=== PATIENT | male | born 1945 | race Caucasian/White ===

== ENCOUNTER 2023-06-30 09:48 | Outpatient (AMB) | payer MEDICARE, SELFPAY ==
--- NOTE | 2023-06-30 09:53 | HO.NEPHOV ---
HPI HPI Comments History of Present Illness Details Inderjit was seen in the office in follow-up of his chronic kidney disease. He has vascular disease including peripheral arterial disease, coronary artery disease needing CABG, right carotid stenosis needing carotid endarterectomy as well as renal artery stenosis. He has history of nephrolithiasis. He has not had any renal stones for a long time. He follows up closely with vascular physicians as well as his primary care doctor. He has not had any medication changes. His blood pressure has been at goal. He is active but gets lower extremity cramping when he walks for some time. He denies chest pain, shortness with, proximal nocturnal dyspnea, orthopnea, dizziness, weakness, nausea, vomiting, diarrhea or urinary symptoms. He had no hematuria and has not passed any grit or gravel in the urine. His renal functions had been stable. He does not take any nonsteroidal anti-inflammatory medications. [facility] Medical History (Updated 06/30/23 @ 13:56 by Quintin Mike MD) PAD (peripheral artery disease) Renal artery stenosis Renal stone Chronic kidney disease, stage 3a Surgical History (Updated 06/30/23 @ 09:54 by Carolina Leary MA) Hx of CABG Social History (Updated 06/30/23 @ 10:00 by Carolina Leary MA) Alcohol intake: never Patient Tobacco Use Status: Former Tobacco user Vital Signs 06/30/23 09:56 Height 6 ft Weight 200 lb 8 oz BMI 27.2 BP 132/70 Blood Pressure Location Rt brachial Position Sitting Pulse 57 Pulse Source Pulse Oximeter Physical Exam Vital Signs: Last Vital Signs Pulse 57 06/30/23 09:56 BP 132/70 06/30/23 09:56 BMI result Body Mass Index 27.2 Const General: comfortable and no acute distress Orientation/consciousness: patient oriented x3 HEENT Head: Yes normocephalic Mouth: Normal oral and palatal mucosa present Eyes EOM: EOMs intact bilaterally Neck Other: L carotid bruit + Neck: Yes supple Resp Auscultation: clear to auscultation bilaterally Cardio Jugular venous distension: no JVD Rate: regular rate GI Palpation (GI): Soft to palpation Auscultation: normal bowel sounds General: Yes no CVA tenderness Back/Spine/Pelvis Back: no CVA tenderness Skin General skin exam: no rashes or lesions noted Neuro General: patient oriented x3 and moves all extremities Extrem General: Yes no pedal edema Assessment & Plan Assessment & Plan (1) Chronic kidney disease, stage 3a: Code(s): N18.31 - Chronic kidney disease, stage 3a (2) Renal stone: Code(s): N20.0 - Calculus of kidney (3) Renal artery stenosis: Code(s): I70.1 - Atherosclerosis of renal artery (4) Hypertension: Code(s): I10 - Essential (primary) hypertension Qualifiers: Hypertension type: renovascular hypertension Qualified Code(s): I15.0 - Renovascular hypertension (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 He had right carotid stenosis needing endarterectomy, coronary artery disease needing CABG, peripheral arterial disease as well as renal artery stenosis. His blood pressure is currently well controlled on current medication regimen. His renal functions had been stable. He avoids nonsteroidal anti-inflammatory medications and maintain good hydration. He does not have any orthostatic symptoms. He has left carotid artery stenosis and is going to be followed up by his vascular physician. He has history of recurrent nephrolithiasis (uric acid stones) and is on allopurinol. He should be on a low-sodium diet. I did not make any medication changes today. All his questions and concerns were addressed. Time spent retrieving data, patient encounter and documentation 21 minutes. Follow-up given. Orders: Orders Uric Acid Today I70.1 - Atherosclerosis of renal artery, N18.31 - Chronic kidney disease, stage 3a, N20.0 - Calculus of kidney Electrolytes Today I70.1 - Atherosclerosis of renal artery, N18.31 - Chronic kidney disease, stage 3a, N20.0 - Calculus of kidney Creatinine Today I70.1 - Atherosclerosis of renal artery, N18.31 - Chronic kidney disease, stage 3a, N20.0 - Calculus of kidney Blood Urea Nitrogen Today I70.1 - Atherosclerosis of renal artery, N18.31 - Chronic kidney disease, stage 3a, N20.0 - Calculus of kidney Calcium Today I70.1 - Atherosclerosis of renal artery, N18.31 - Chronic kidney disease, stage 3a, N20.0 - Calculus of kidney Coding Level of Care Code Est Pt Level 3 (72701) Diagnoses Chronic kidney disease, stage 3a N18.31 Renal stone N20.0 Renal artery stenosis I70.1 Renovascular hypertension I15.0 Hypertension 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
[2023-06-30 09:56] VITALS: BP 132/70; PULSE 57; BMI 27.2
== END 2023-06-30 10:48 | disposition home or self-care (01) ==
PROVIDERS: PCP Family Medicine; Visit Provider Internal Medicine Nephrology
DX: I12.9 Hypertensive chronic kidney disease with stage 1 through stage 4 chronic kidney disease, or unspecified chronic kidney disease (principal); N18.31 Chronic kidney disease, stage 3a; I70.1 Atherosclerosis of renal artery; N20.0 Calculus of kidney; R82.991 Hypocitraturia
CPT/HCPCS: 99213

== ENCOUNTER → 2023-06-30 09:48 | Outpatient (BNVA) | payer MEDICARE, SELFPAY | PROVIDERS: PCP Family Medicine; Visit Provider Internal Medicine Nephrology | DX: N18.31 Chronic kidney disease, stage 3a (principal); N20.0 Calculus of kidney; I70.1 Atherosclerosis of renal artery; I15.0 Renovascular hypertension; R82.991 Hypocitraturia | CPT/HCPCS: 99212 ==

== ENCOUNTER 2023-10-27 09:24 | Outpatient (AMB) | payer MEDICARE, SELFPAY ==
[2023-10-27 09:28] VITALS: BP 104/62; PULSE 63; O2SAT 93; BMI 27.3
--- NOTE | 2023-10-27 09:28 | HO.NEPHOV_ITS ---
HPI HPI Comments History of Present Illness Details Inderjit was seen in the office in follow-up of his chronic kidney disease. He has vascular disease including peripheral arterial disease, coronary artery disease needing CABG, right carotid stenosis needing carotid endarterectomy as well as renal artery stenosis. He has history of nephrolithiasis. He has not had any renal stones for a long time. He follows up closely with vascular physicians as well as his primary care doctor. He has not had any medication changes. His blood pressure has been at goal. He is active but gets lower extremity cramping when he walks for some time. He denies chest pain, shortness with, proximal nocturnal dyspnea, orthopnea, dizziness, weakness, nausea, vomiting, diarrhea or urinary symptoms. He had no hematuria and has not passed any grit or gravel in the urine. His renal functions had been stable. He does not take any nonsteroidal anti-inflammatory medications. [facility] Medical History (Updated 06/30/23 @ 13:56 by Quintin Mike MD) PAD (peripheral artery disease) Renal artery stenosis Renal stone Chronic kidney disease, stage 3a Surgical History (Updated 06/30/23 @ 09:54 by Carolina Leary MA) Hx of CABG Social History (Updated 06/30/23 @ 10:00 by Carolina Leary MA) Alcohol intake: never Patient Tobacco Use Status: Former Tobacco user Vital Signs 10/27/23 09:28 Height 6 ft Weight 201 lb 8 oz BMI 27.3 BP 104/62 Blood Pressure Location Lt brachial Position Sitting Pulse 63 Pulse Source Pulse Oximeter Pulse Oximetry (%) 93 Oxygen Delivery Method Room Air Physical Exam Vital Signs: Normal Const General: comfortable and no acute distress Orientation/consciousness: patient oriented x3 HEENT Head: Yes normocephalic Mouth: Normal oral and palatal mucosa present Eyes EOM: EOMs intact bilaterally Neck Neck: Yes supple Resp Auscultation: clear to auscultation bilaterally Cardio Jugular venous distension: no JVD Rate: regular rate GI Palpation (GI): Soft to palpation Auscultation: normal bowel sounds General: Yes no CVA tenderness Back/Spine/Pelvis Back: no CVA tenderness Skin General skin exam: no rashes or lesions noted Neuro General: patient oriented x3 and moves all extremities Extrem General: Yes no pedal edema Assessment & Plan Assessment & Plan (1) Chronic kidney disease, stage 3a: Code(s): N18.31 - Chronic kidney disease, stage 3a (2) Renal artery stenosis: Code(s): I70.1 - Atherosclerosis of renal artery (3) Renal stone: Code(s): N20.0 - Calculus of kidney (4) Hypertension: Code(s): I10 - Essential (primary) hypertension Qualifiers: Hypertension type: renovascular hypertension Qualified Code(s): I15.0 - Renovascular hypertension Pili Jansen has 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 He had right carotid stenosis needing endarterectomy, coronary artery disease needing CABG, peripheral arterial disease as well as renal artery stenosis. His blood pressure is currently well controlled on current medication regimen. His renal functions had been stable. He avoids nonsteroidal anti-inflammatory medications and maintain good hydration. He does not have any orthostatic symptoms. He has left carotid artery stenosis and is going to be followed up by his vascular physician. He has history of recurrent nephrolithiasis (uric acid stones) and is on allopurinol. He should be on a low-sodium diet. I did not make any medication changes today. All his questions and concerns were addressed. Orders: Orders Parathyroid Hormone Intact Today I10 - Essential (primary) hypertension, I70.1 - Atherosclerosis of renal artery, N18.31 - Chronic kidney disease, stage 3a, N20.0 - Calculus of kidney Phosphorus Today I10 - Essential (primary) hypertension, I70.1 - Atherosclerosis of renal artery, N18.31 - Chronic kidney disease, stage 3a, N20.0 - Calculus of kidney Creatinine Today I10 - Essential (primary) hypertension, I70.1 - Atherosclerosis of renal artery, N18.31 - Chronic kidney disease, stage 3a, N20.0 - Calculus of kidney Blood Urea Nitrogen Today I10 - Essential (primary) hypertension, I70.1 - Atherosclerosis of renal artery, N18.31 - Chronic kidney disease, stage 3a, N20.0 - Calculus of kidney Electrolytes Today I10 - Essential (primary) hypertension, I70.1 - Atherosclerosis of renal artery, N18.31 - Chronic kidney disease, stage 3a, N20.0 - Calculus of kidney Calcium Today I10 - Essential (primary) hypertension, I70.1 - Atherosclerosis of renal artery, N18.31 - Chronic kidney disease, stage 3a, N20.0 - Calculus of kidney Complete Blood Count Auto Diff Today I10 - Essential (primary) hypertension, I70.1 - Atherosclerosis of renal artery, N18.31 - Chronic kidney disease, stage 3a, N20.0 - Calculus of kidney Coding Level of Care Code Est Pt Level 4 (69144) Diagnoses Chronic kidney disease, stage 3a N18.31 Renal artery stenosis I70.1 Renal stone N20.0 Renovascular hypertension I15.0 Hypertension type: renovascular hypertension Results Reviewed Nephrology Results: No Data to Display
== END 2023-10-27 09:51 | disposition home or self-care (01) ==
PROVIDERS: PCP Family Medicine; Visit Provider Internal Medicine Nephrology
DX: N18.31 Chronic kidney disease, stage 3a (principal); I70.1 Atherosclerosis of renal artery; N20.0 Calculus of kidney; I15.0 Renovascular hypertension
CPT/HCPCS: 99214

== ENCOUNTER → 2023-10-27 09:24 | Outpatient (BNVA) | payer MEDICARE, SELFPAY | PROVIDERS: PCP Family Medicine; Visit Provider Internal Medicine Nephrology | DX: N18.31 Chronic kidney disease, stage 3a (principal); I15.0 Renovascular hypertension; I73.9 Peripheral vascular disease, unspecified; I25.10 Atherosclerotic heart disease of native coronary artery without angina pectoris; I70.1 Atherosclerosis of renal artery; N20.0 Calculus of kidney | CPT/HCPCS: 99212 ==

== ENCOUNTER 2024-03-01 09:22 | Outpatient (AMB) | payer MEDICARE, SELFPAY ==
--- NOTE | 2024-03-01 09:30 | HO.NEPHOV ---
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 He has vascular disease including peripheral arterial disease, coronary artery disease needing CABG, right carotid stenosis needing carotid endarterectomy as well as renal artery stenosis. He has history of nephrolithiasis. He has not had any renal stones for a long time. He follows up closely with vascular physicians as well as his primary care doctor. He has not had any medication changes. His blood pressure has been at goal. He is active but gets lower extremity cramping when he walks for some time. He denies chest pain, shortness with, proximal nocturnal dyspnea, orthopnea, dizziness, weakness, nausea, vomiting, diarrhea or urinary symptoms. He had no hematuria and has not passed any grit or gravel in the urine. His renal functions had been stable. He does not take any nonsteroidal anti-inflammatory medications. [facility] Medical History (Updated 06/30/23 @ 13:56 by Quintin Mike MD) PAD (peripheral artery disease) Renal artery stenosis Renal stone Chronic kidney disease, stage 3a Surgical History Hx of CABG Social History Alcohol intake: never Patient Tobacco Use Status: Former Tobacco user Physical Exam Vital Signs: Last Vital Signs Pulse 61 03/01/24 09:32 BP 100/60 03/01/24 09:32 Pulse Ox 93 03/01/24 09:32 Oxygen Delivery Method Room Air 03/01/24 09:32 BMI result Body Mass Index 26.2 Const General: comfortable and no acute distress Orientation/consciousness: patient oriented x3 HEENT Head: Yes normocephalic Mouth: Normal oral and palatal mucosa present Eyes EOM: EOMs intact bilaterally Neck Neck: Yes supple Resp Auscultation: clear to auscultation bilaterally Cardio Jugular venous distension: no JVD Rate: regular rate GI Palpation (GI): Soft to palpation Auscultation: normal bowel sounds General: Yes no CVA tenderness Back/Spine/Pelvis Back: no CVA tenderness Skin General skin exam: no rashes or lesions noted Neuro General: patient oriented x3 and moves all extremities Extrem General: Yes no pedal edema Results Reviewed Nephrology Results: No Data to Display Assessment & Plan Assessment & Plan (1) Hypertension: Code(s): I10 - Essential (primary) hypertension Category: Medical Qualifiers: Hypertension type: renovascular hypertension Qualified Code(s): I15.0 - Renovascular hypertension (2) Chronic kidney disease, stage 3a: Code(s): N18.31 - Chronic kidney disease, stage 3a Category: Medical (3) Renal stone: Code(s): N20.0 - Calculus of kidney Category: Medical (4) Renal artery stenosis: Code(s): I70.1 - Atherosclerosis of renal artery Category: Medical Plan 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 He had right carotid stenosis needing endarterectomy, coronary artery disease needing CABG, peripheral arterial disease as well as renal artery stenosis. His blood pressure is currently well controlled on current medication regimen. His renal functions had been stable. He avoids nonsteroidal anti-inflammatory medications and maintain good hydration. He does not have any orthostatic symptoms. He has left carotid artery stenosis and is going to be followed up by his vascular physician. He has history of recurrent nephrolithiasis (uric acid stones) and is on allopurinol. He should be on a low-sodium diet. I did not make any medication changes today. All his questions and concerns were addressed Orders: Orders Creatinine Today I15.0 - Renovascular hypertension, I70.1 - Atherosclerosis of renal artery, N18.31 - Chronic kidney disease, stage 3a, N20.0 - Calculus of kidney Blood Urea Nitrogen Today I15.0 - Renovascular hypertension, I70.1 - Atherosclerosis of renal artery, N18.31 - Chronic kidney disease, stage 3a, N20.0 - Calculus of kidney Electrolytes Today I15.0 - Renovascular hypertension, I70.1 - Atherosclerosis of renal artery, N18.31 - Chronic kidney disease, stage 3a, N20.0 - Calculus of kidney Complete Blood Count Auto Diff Today I15.0 - Renovascular hypertension, I70.1 - Atherosclerosis of renal artery, N18.31 - Chronic kidney disease, stage 3a, N20.0 - Calculus of kidney Parathyroid Hormone Intact Today I15.0 - Renovascular hypertension, I70.1 - Atherosclerosis of renal artery, N18.31 - Chronic kidney disease, stage 3a, N20.0 - Calculus of kidney Calcium Today I15.0 - Renovascular hypertension, I70.1 - Atherosclerosis of renal artery, N18.31 - Chronic kidney disease, stage 3a, N20.0 - Calculus of kidney Coding Level of Care Code Est Pt Level 4 (39903) Diagnoses Renovascular hypertension I15.0 Hypertension type: renovascular hypertension Chronic kidney disease, stage 3a N18.31 Renal stone N20.0 Renal artery stenosis I70.1
[2024-03-01 09:32] VITALS: BP 100/60; PULSE 61; O2SAT 93; BMI 26.2
== END 2024-03-01 09:42 | disposition home or self-care (01) ==
PROVIDERS: PCP Family Medicine; Visit Provider Internal Medicine Nephrology
DX: I12.9 Hypertensive chronic kidney disease with stage 1 through stage 4 chronic kidney disease, or unspecified chronic kidney disease (principal); N18.31 Chronic kidney disease, stage 3a; N20.0 Calculus of kidney; I70.1 Atherosclerosis of renal artery
CPT/HCPCS: 99214

== ENCOUNTER → 2024-03-01 09:22 | Outpatient (BNVA) | payer MEDICARE, SELFPAY | PROVIDERS: PCP Family Medicine; Visit Provider Internal Medicine Nephrology | DX: I15.0 Renovascular hypertension (principal); N18.31 Chronic kidney disease, stage 3a; I70.1 Atherosclerosis of renal artery; N20.0 Calculus of kidney; I65.21 Occlusion and stenosis of right carotid artery; I73.9 Peripheral vascular disease, unspecified; I25.10 Atherosclerotic heart disease of native coronary artery without angina pectoris | CPT/HCPCS: 99212 ==

== ENCOUNTER 2024-09-08 09:50 | Outpatient (AMB) | payer MEDICARE, SELFPAY ==
--- NOTE | 2024-09-08 10:03 | HO.NEPHOV ---
Vital Signs 09/08/24 10:04 Height 6 ft Weight 201 lb 2 oz BMI 27.3 BP 124/70 Blood Pressure Location Lt brachial Position Sitting Pulse 62 Pulse Source Pulse Oximeter Pulse Oximetry (%) 93 Oxygen Delivery Method Room Air Intake Visit Reasons: Chronic kidney disease, stage 3a-LVM White [employer] Corros[employer] Proofer Required: No Accompanied by: Self / Same As Patient Allergies No Known Allergies Allergy (Verified 09/08/24 10:04) HPI Comments Details: Inderjit was seen in the office in follow-up of his chronic kidney disease. He has vascular disease including peripheral arterial disease, coronary artery disease needing CABG, right carotid stenosis needing carotid endarterectomy as well as renal artery stenosis. He has history of nephrolithiasis. He has not had any renal stones for a long time. He follows up closely with vascular physicians as well as his primary care doctor. He has not had any medication changes. His blood pressure has been at goal. He is active but gets lower extremity cramping when he walks for some time. He denies chest pain, shortness with, proximal nocturnal dyspnea, orthopnea, dizziness, weakness, nausea, vomiting, diarrhea or urinary symptoms. He had no hematuria and has not passed any grit or gravel in the urine. His renal functions had been stable. He does not take any nonsteroidal anti-inflammatory medications [facility] Medical History (Updated 04/14/24 @ 17:13 by Quintin Mike MD) PAD (peripheral artery disease) Renal artery stenosis Renal stone Chronic kidney disease, stage 3a Surgical History Hx of CABG Social History Alcohol intake: never Patient Tobacco Use Status: Former Tobacco user Review of Systems Const All systems reviewed & are unremarkable except as noted in HPI and below Physical Exam Vital Signs: Last Vital Signs Pulse 62 09/08/24 10:04 BP 124/70 09/08/24 10:04 Pulse Ox 93 09/08/24 10:04 Oxygen Delivery Method Room Air 09/08/24 10:04 BMI result Body Mass Index 27.3 Const General: comfortable and no acute distress Orientation/consciousness: patient oriented x3 HEENT Head: Yes normocephalic Mouth: Normal oral and palatal mucosa present Eyes EOM: EOMs intact bilaterally Neck Neck: Yes supple Resp Auscultation: clear to auscultation bilaterally Cardio Jugular venous distension: no JVD Rate: regular rate GI Palpation (GI): Soft to palpation Auscultation: normal bowel sounds General: Yes no CVA tenderness Back/Spine/Pelvis Back: no CVA tenderness Skin General skin exam: no rashes or lesions noted Neuro General: patient oriented x3 and moves all extremities Extrem General: Yes no pedal edema Results Reviewed Nephrology Results: No Data to Display Assessment & Plan Assessment & Plan (1) Renovascular hypertension: Code(s): I15.0 - Renovascular hypertension Category: Medical (2) 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 He had right carotid stenosis needing endarterectomy, coronary artery disease needing CABG, peripheral arterial disease as well as renal artery stenosis. His blood pressure is currently well controlled on current medication regimen. His renal functions had been stable. He avoids nonsteroidal anti-inflammatory medications and maintain good hydration. He does not have any orthostatic symptoms. He has left carotid artery stenosis and is going to be followed up by his vascular physician. He has history of recurrent nephrolithiasis (uric acid stones) and is on allopurinol. He should be on a low-sodium diet. I did not make any medication changes today. All his questions and concerns were addressed Orders: Orders Creatinine 6 Months I15.0 - Renovascular hypertension, I70.1 - Atherosclerosis of renal artery, N18.31 - Chronic kidney disease, stage 3a, N20.0 - Calculus of kidney, R82.991 - Hypocitraturia Electrolytes 6 Months I15.0 - Renovascular hypertension, I70.1 - Atherosclerosis of renal artery, N18.31 - Chronic kidney disease, stage 3a, N20.0 - Calculus of kidney, R82.991 - Hypocitraturia Uric Acid 6 Months I15.0 - Renovascular hypertension, I70.1 - Atherosclerosis of renal artery, N18.31 - Chronic kidney disease, stage 3a, N20.0 - Calculus of kidney, R82.991 - Hypocitraturia Blood Urea Nitrogen 6 Months I15.0 - Renovascular hypertension, I70.1 - Atherosclerosis of renal artery, N18.31 - Chronic kidney disease, stage 3a, N20.0 - Calculus of kidney, R82.991 - Hypocitraturia Calcium 6 Months I15.0 - Renovascular hypertension, I70.1 - Atherosclerosis of renal artery, N18.31 - Chronic kidney disease, stage 3a, N20.0 - Calculus of kidney, R82.991 - Hypocitraturia Coding Level of Care Code Est Pt Level 4 (13985) Diagnoses Renovascular hypertension I15.0 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
[2024-09-08 10:04] VITALS: BP 124/70; PULSE 62; O2SAT 93; BMI 27.3
--- OUTSIDE RECORDS SUMMARY | 2024-09-08 10:36 | XMS_ITS ---
Author Organization [facility] Address Unknown Problems Problem Status Start Date End Date NON-ST ELEVATION (NSTEMI) MY OCARDIAL INFARCTION (Primary) (I21.4 - ICD-10-CM) ACTIVE 07/12/2017 ATHEROSCLEROSIS OF CORONARY ARTERY BYPASS GRAFT(S) WITHOUT ANGINA PECTORIS (I25.810 - ICD-10-CM) ACTIVE 07/12/2017 PRESENCE OF AORTOCORONARY BYPASS GRAFT (Z95.1 - ICD-10 -CM) ACTIVE 07/12/2017 ATHEROSCLEROTIC HEART DISEAS E OF [place] CORONARY ARTERY WITHOUT ANGINA PECTORIS (I25.10 - ICD-10-CM) ACTIVE 07/12/2017 OCCLUSION AND STENOSIS OF UN SPECIFIED CAROTID ARTERY (I65.29 - ICD-10-CM) ACTIVE 07/12/2017 CHRONIC OBSTRUCTIVE PULMONAR Y DISEASE, UNSPECIFIED (J44.9 - ICD-10-CM) ACTIVE 07/12/2017 WEAKNESS (R53.1 - ICD-10-CM) ACTIVE 07/12/2017 HEART FAILURE, UNSPECIFIED (I50.9 - ICD-10-CM) ACTIVE 07/12/2017 CHRONIC KIDNEY DISEASE, STAGE 2 (MILD) (N18.2 - ICD-10 -CM) ACTIVE 07/12/2017 ESSENTIAL (PRIMARY) HYPERTENSION (I10 - ICD-10-CM) ACT CRUZITO 07/12/2017 HYPERLIPIDEMIA, UNSPECIFIED (E78.5 - ICD-10-CM) ACTIVE 07/12/2017 PERIPHERAL VASCULAR DISEASE, UNSPECIFIED (I73.9 - ICD-10-CM) ACTIVE 07/12/2017 CALCULUS OF KIDNEY (N20.0 - ICD-10-CM) ACTIVE SOLITARY PULMONARY NODULE (R91.1 - ICD-10-CM) ACTIVE 07/12/2017 PERSONAL HISTORY OF TRANSIEN T ISCHEMIC ATTACK (TIA), AND CEREBRAL INFARCTION WITHOUT RESIDUAL DEFICITS (Z86.73 - ICD-10-CM) ACTIVE 07/12/2017 PAIN, UNSPECIFIED (R52 - ICD-10-CM) ACTIVE 07/12 GASTRO-ESOPHAGEAL REFLUX DIS EASE WITHOUT ESOPHAGITIS (K21.9 - ICD-10-CM) ACTIVE 07/12/2017 ANEMIA, UNSPECIFIED (D64.9 - ICD-10-CM) ACTIVE 1 09/12/2016 Encounters Encounter Performer Performer Role Encounter Diagnoses Location Date Discharge - Discharged to home or self care - Home - Private home/apt. with home health services [facility] 7 03:43 pm EST - 7 04:44 pm EST Immunizations Vaccine Date Influenza Prevnar 13 Social History
--- OUTSIDE RECORDS SUMMARY | 2024-09-08 10:36 | XMS_ITS | Clinical Summary ---
Author Organization [facility] Address [address] [place] [address] Phone Care Team Providers Care Paper Guillotine Operator Name Role Phone Chau Carlton MD Primary Care Provider [phone] Allergies No known active allergies Medications allopurinol (ZYLOPRIM) 100 MG tablet Take 1 tablet by mouth 1 (one) time each day 05/01/2020 Active aspirin 325 MG tablet Take 0.5 tablets by mouth 1 (one) time each day Active pravastatin (PRAVACHOL) 40 MG tablet Take 1 tablet by mouth 1 (one) time each day Active amLODIPine (NORVASC) 10 MG tablet Take 1 tablet by mouth 1 (one) time each day 05/20/2022 Active carvedilol (COREG) 12.5 MG tablet Take 1 tablet by mouth in the morning and 1 tablet in the evening. 05/21/2022 Active Active Problems Problem Noted Date Diagnosed Date Benign hypertensive renal disease 10/30/2020 Stage 3a chronic kidney disease 10/30/2020 Renal stone 10/30/2020 Renal artery stenosis 10/30/2020 Benign essential hypertension 05/18/2013 Resolved Problems Problem Noted Date Diagnosed Date Resolved Date Deviated nasal septum 11/12/20212021 Ex-cigarette smoker 11/12/2021 11/13/19 22 History of coronary artery bypass grafting 11/12/2021 11/12/2021 History of repair of inguinal hernia 11/12/2021 11/12/2021 Nondependent alcohol abuse in remission 11/12/2021 11/12/2021 Peripheral vascular disease 11/12/2021 11/12/2021 Mixed hyperlipidemia 05/18/2013 022 Symptomatic carotid artery stenosis 05/18/2013 11/12/2021 Overview (11/12/2021): Follows [facility] vascular [facility] Transient cerebral ischemia 05/02/2013 11/12/2021 Family History Medical History Relation Comments Diabetes Mother Relation Status Comments Father Mother Social History Tobacco Use Types Packs/Day Years Used Date Smoking Tobacco: Never Smokeless Tobacco: Never Tobacco Cessation:Counseling Given: Not Answered Alcohol Use Standard Drinks/Week Comments No 0 (1 standard drink = 0.6 oz pur e alcohol) Sex and Gender Information Value Date Recorded Sex Assigned at Not on file Legal Sex Male 5:08 PM EST Gender Identity Not on file Sexual Orientation Not on file Last Filed Vital Signs Vital Sign Reading Time Taken Comments Blood Pressure 120/80 02/24/2023 1:37 PM EDT Pulse 63 02/24/2023 1:37 PM EDT Temperature - - Respiratory Rate - - Oxygen Saturation 95% 05/07/2021 12:54 PM EDT Inhaled Oxygen Concentration - - Weight 90.4 kg (199 lb 3.2 oz) 02/24/2023 1:37 P M EDT Height 182.9 cm (6') 05/01/2020 12:00 PM EDT Body Mass Index 27.02 05/01/2020 12:00 PM EDT Plan of Treatment Health Maintenance Due Date Last Done Comments Pneumococcal Vaccine: 65+ Ye ars (1 of 2 - PCV) 1951 Influenza Vaccine (#1) 2024 Hepatitis B Vaccine Aged Out No longe r eligible based on patient's age to complete this topic Insurance [facility] MEDICARE [facility] MEDICARE Care Teams Paper Guillotine Operator Relationship Specialty Start Date End Date Chau Carlton MD [address] PCP - General Family Medicine 10/30/20
== END 2024-09-08 10:32 | disposition home or self-care (01) ==
PROVIDERS: PCP Family Medicine; Visit Provider Internal Medicine Nephrology
DX: I12.9 Hypertensive chronic kidney disease with stage 1 through stage 4 chronic kidney disease, or unspecified chronic kidney disease (principal); N18.31 Chronic kidney disease, stage 3a; N20.0 Calculus of kidney; I70.1 Atherosclerosis of renal artery; R82.991 Hypocitraturia
CPT/HCPCS: 99214

== ENCOUNTER → 2024-09-08 09:50 | Outpatient (BNVA) | payer MEDICARE, SELFPAY | PROVIDERS: PCP Family Medicine; Visit Provider Internal Medicine Nephrology | DX: I15.0 Renovascular hypertension (principal); I70.1 Atherosclerosis of renal artery; N18.31 Chronic kidney disease, stage 3a; N20.0 Calculus of kidney; R82.991 Hypocitraturia | CPT/HCPCS: 99212 ==

== ENCOUNTER 2025-04-04 09:49 | Outpatient (AMB) | payer MEDICARE, SELFPAY ==
--- NOTE | 2025-04-04 09:57 | HO.NEPHOV ---
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 He has vascular disease including peripheral arterial disease, coronary artery disease needing CABG, right carotid stenosis needing carotid endarterectomy as well as renal artery stenosis. He has history of nephrolithiasis. He has not had any renal stones for a long time. He follows up closely with vascular physicians as well as his primary care doctor. He has not had any medication changes. His blood pressure has been at goal. He is active but gets lower extremity cramping when he walks for some time. He denies chest pain, shortness with, proximal nocturnal dyspnea, orthopnea, dizziness, weakness, nausea, vomiting, diarrhea or urinary symptoms. He had no hematuria and has not passed any grit or gravel in the urine. His renal functions had been stable. He does not take any nonsteroidal anti-inflammatory medications [facility] Medical History (Updated 04/14/24 @ 17:13 by Quintin Mike MD) PAD (peripheral artery disease) Renal artery stenosis Renal stone Chronic kidney disease, stage 3a Surgical History Hx of CABG Social History Alcohol intake: never Patient Tobacco Use Status: Former Tobacco user Review of Systems Const All systems reviewed & are unremarkable except as noted in HPI and below Physical Exam Vital Signs: Last Vital Signs Pulse 56 04/04/25 09:59 BP 132/70 04/04/25 09:59 Pulse Ox 91 L 04/04/25 09:59 Oxygen Delivery Method Room Air 04/04/25 09:59 BMI result Body Mass Index 26.7 Const General: comfortable and no acute distress Orientation/consciousness: patient oriented x3 HEENT Head: Yes normocephalic Mouth: Normal oral and palatal mucosa present Eyes EOM: EOMs intact bilaterally Neck Neck: Yes supple Resp Auscultation: clear to auscultation bilaterally Cardio Jugular venous distension: no JVD Rate: regular rate GI Palpation (GI): Soft to palpation Auscultation: normal bowel sounds General: Yes no CVA tenderness Back/Spine/Pelvis Back: no CVA tenderness Skin General skin exam: no rashes or lesions noted Neuro General: patient oriented x3 and moves all extremities Extrem General: Yes no pedal edema Assessment & Plan Assessment & Plan (1) Renal artery stenosis: Code(s): I70.1 - Atherosclerosis of renal artery Category: Medical (2) Renovascular hypertension: Code(s): I15.0 - Renovascular hypertension Category: Medical (3) Chronic kidney disease, stage 3a: Code(s): N18.31 - Chronic kidney disease, stage 3a Category: Medical (4) Renal stone: Code(s): N20.0 - Calculus of kidney Category: Medical (5) Hypocitraturia: Code(s): 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 He had right carotid stenosis needing endarterectomy, coronary artery disease needing CABG, peripheral arterial disease as well as renal artery stenosis. His blood pressure is currently well controlled on current medication regimen. His renal functions had been stable. He avoids nonsteroidal anti-inflammatory medications and maintain good hydration. He does not have any orthostatic symptoms. He has left carotid artery stenosis and is going to be followed up by his vascular physician. He has history of recurrent nephrolithiasis (uric acid stones) and is on allopurinol. He should be on a low-sodium diet. I did not make any medication changes today. All his questions and concerns were addressed Orders: Orders US renal BI 1 Month N20.0 - Calculus of kidney Electrolytes 6 Months I15.0 - Renovascular hypertension, I70.1 - Atherosclerosis of renal artery, N18.31 - Chronic kidney disease, stage 3a, N20.0 - Calculus of kidney, R82.991 - Hypocitraturia Calcium 6 Months I15.0 - Renovascular hypertension, I70.1 - Atherosclerosis of renal artery, N18.31 - Chronic kidney disease, stage 3a, N20.0 - Calculus of kidney, R82.991 - Hypocitraturia Blood Urea Nitrogen 6 Months I15.0 - Renovascular hypertension, I70.1 - Atherosclerosis of renal artery, N18.31 - Chronic kidney disease, stage 3a, N20.0 - Calculus of kidney, R82.991 - Hypocitraturia Creatinine 6 Months I15.0 - Renovascular hypertension, I70.1 - Atherosclerosis of renal artery, N18.31 - Chronic kidney disease, stage 3a, N20.0 - Calculus of kidney, R82.991 - Hypocitraturia Uric Acid 6 Months I15.0 - Renovascular hypertension, I70.1 - Atherosclerosis of renal artery, N18.31 - Chronic kidney disease, stage 3a, N20.0 - Calculus of kidney, R82.991 - Hypocitraturia Coding Level of Care Code Est Pt Level 4 (83170) Diagnoses Renal artery stenosis I70.1 Renovascular hypertension I15.0 Chronic kidney disease, stage 3a N18.31 Renal stone N20.0 Hypocitraturia R82.991
[2025-04-04 09:59] VITALS: BP 132/70; PULSE 56; O2SAT 91; BMI 26.7
--- OUTSIDE RECORDS SUMMARY | 2025-04-04 10:56 | XMS_ITS ---
Author Organization [facility] Care Team Providers Care Sugarcane Planter Name Role Phone Chau Carlton Unavailable Unavailable Allergies and adverse reactions No Known Allergies Care Team Name Role Address Phone Organization Dates Chau Carlton PCP [address], [place], [address], [place] States (Office): : [facility] 07/12/2017 - 07/29/2017 Immunizations Immunization Status Vaccine Details Vaccine Code CodeSystem Date Notes Influenza cancelled Influenza, high-dose, split virus, quadrivalent, injectable, preservative free 197 CVX created date: 07/12/2017 consent date: 07/12/2017 Educated by dbarrryley on 07/12/2017 Prevnar 13 cancelled pneumococcal conjugate vaccine, 13 valent 133 CVX created date: 07/12/2017 consent date: 07/12/2017 Educated by dbarrryley on 07/12/2017 Mental Status Section Date Assessment Total Score Description 07/29/2017 BIMS 15 cognitively int act CAM 0 No delirium ind icated PHQ-9 00 07/26/2017 BIMS 15 cognitively int act CAM 0 No delirium ind icated PHQ-9 00 Problems Problem # Description Date of onset Resolved Date Code CodeSystem Concern Status 1 ANEMIA, UNSPECIFIED 07/12/[address] active 2 ATHEROSCLEROSIS OF CORONARY ARTERY BYPASS GRAFT(S) WITHOUT ANGINA PECTORIS 07/12/[address] active 3 ATHEROSCLEROTIC HEART DISEASE OF [place] CORONARY ARTERY WITHOUT ANGINA PECTORIS 07/12/[address] active 4 CALCULUS OF KIDNEY 07/12/[address] active 5 CHRONIC KIDNEY DISEASE, STAGE 2 (MILD) 07/12/[address] active 6 CHRONIC OBSTRUCTIVE PULMONARY DISEASE, UNSPECIFIED 07/12/[address] active 7 ESSENTIAL (PRIMARY) HYPERTENSION 07/12/[address] active 8 GASTRO-ESOPHAGEAL REFLUX DISEASE WITHOUT ESOPHAGITIS 07/12/[address] active 9 HEART FAILURE, UNSPECIFIED 07/12/[address] active 10 HYPERLIPIDEMIA, UNSPECIFIED 07/12/[address] active 11 NON-ST ELEVATION (NSTEMI) MYOCARDIAL INFARCTION 07/12/[address] active 12 OCCLUSION AND STENOSIS OF UNSPECIFIED CAROTID ARTERY 07/12/[address] active 13 PAIN, UNSPECIFIED 07/12/[address] active 14 PERIPHERAL VASCULAR DISEASE, UNSPECIFIED 07/12/[address] active 15 PERSONAL HISTORY OF TRANSIENT ISCHEMIC ATTACK (TIA), AND CEREBRAL INFARCTION WITHOUT RESIDUAL DEFICITS 07/12/[address] active 16 PRESENCE OF AORTOCORONARY BYPASS GRAFT 07/12/[address] active 17 SOLITARY PULMONARY NODULE 07/12/[address] active 18 WEAKNESS 07/12/[address] active Reason for Referral No Reasons for Referral Entered Social History Social History Observation Description Start Date End Date Code Code System Current Smoking Status Tobacco smoking consumption unknown 044100596 SNOMED CT Sex Assigned At Male 1945 61470-7 [facility] Gender Identity Vital Signs Code Code System Vitals Name Values and Units Timing Information 15435-5 LOINC Weight Aqxgj=131.2 Units=Lbs 9279-1 INC Respiratory Rate Value=18.0 Units=/m in 07/25/2017 8462-4 LOINC Blood Pressure-Diastolic Value=61 Un its=mmHg 07/25/2017 8480-6 LOINC Blood Pressure-Systolic Agoqe=291 Un its=mmHg 07/25/2017 8310-5 LOINC Body Temperature Value=97.8 Units= F 07/25/2017 8867-4 [facility] Heart rate Value=72.0 Units=/min 49183-9 LOINC O2 % BldC Oximetry Value=92.0 Units= % 07/25/2017 01927-8 [facility] Pain Level Value=0.0 07/25/2017 8302-2 [facility] Height Value=72.0 Units=Inches 07/12/2017
--- OUTSIDE RECORDS SUMMARY | 2025-04-04 10:56 | XMS_ITS | Clinical Summary ---
Author Organization [facility] Address [address] [place] [address] Phone Care Team Providers Care Entry Level Financial Analyst Name Role Phone Chau Carlton MD Primary Care Provider Allergies No known active allergies Medications allopurinol [...] [place] [facility] [place] Transient cerebral ischemia 05/02/2013 11/12/2021 Family History [...] Due Date Last Done Comments Pneumococcal Vaccine: 50+ Ye ars (1 of 2 - PCV) 1964 Influenza Vaccine (#1) 2025 Hepatitis B Vaccine Aged Out No longe r eligible based on patient's age to complete this topic Insurance [facility] Medicare [facility] Medicare Care Teams Entry Level Financial Analyst Relationship Specialty Start Date End Date Chau Carlton MD [address] PCP - General Family Medicine 10/30/20
== END 2025-04-04 10:21 | disposition home or self-care (01) ==
LOC: HO.HKA 09:49
PROVIDERS: PCP Family Medicine; Visit Provider Internal Medicine Nephrology
DX: I70.1 Atherosclerosis of renal artery (principal); I15.0 Renovascular hypertension; N18.31 Chronic kidney disease, stage 3a; N20.0 Calculus of kidney; R82.991 Hypocitraturia
CPT/HCPCS: 99214

== ENCOUNTER → 2025-04-04 09:49 | Outpatient (BNVA) | payer MEDICARE, SELFPAY | PROVIDERS: PCP Family Medicine; Visit Provider Internal Medicine Nephrology | DX: I15.0 Renovascular hypertension (principal); N18.31 Chronic kidney disease, stage 3a; I70.1 Atherosclerosis of renal artery; N20.0 Calculus of kidney; R82.991 Hypocitraturia | CPT/HCPCS: 99212 ==

== ENCOUNTER 2025-05-10 13:53 | Outpatient (REF) | payer MEDICARE, SELFPAY ==
--- NOTE | ~2025-05-10 | US_ITS ---
CLINICAL HISTORY: N20.0 - Calculus of kidney US Renal Comparison: None provided Findings: Right kidney normal size and echotexture, 11.5 cm length. Left kidney normal size and echotexture, 11.8 cm length. There are bilateral renal Bosniak I cysts and parenchymal calculi. No hydronephrosis of either kidney. Normal color Doppler. IMPRESSION: 1. Bilateral renal parenchymal calculi. No acute findings. This document has been electronically signed by: Bora Pabon MD on 05/11/2025 09:04:18
== END 2025-05-10 13:54 | disposition home or self-care (01) ==
LOC: HO.HMGCX 13:53
PROVIDERS: PCP Family Medicine; Visit Provider Internal Medicine Nephrology
DX: N20.0 Calculus of kidney (principal)
CPT/HCPCS: 76775

== ENCOUNTER → 2025-05-10 13:59 | Outpatient (BNV) | payer MEDICARE, SELFPAY | PROVIDERS: PCP Family Medicine; Visit Provider Specialist | DX: N28.1 Cyst of kidney, acquired (principal); N20.0 Calculus of kidney | CPT/HCPCS: 76775 ==